=== PATIENT | female | born 1990 | race Caucasian/White ===

== ENCOUNTER 2024-12-01 23:46 | Emergency (ER) | payer OTHER, SELFPAY ==
[2024-12-01 23:58] VITALS: BP 108/75; BP 132/78; PULSE 106; PULSE 93; RESP 16; TEMP 36.6; O2SAT 96; O2SAT 97; BMI 28.7
[2024-12-02 00:12] VITALS: BP 108/75; PULSE 93; PULSE 98; RESP 16; TEMP 36.6; O2SAT 96
[2024-12-02 00:27] VITALS: BP 114/90; PULSE 96; RESP 16; O2SAT 96
--- NOTE | 2024-12-02 00:29 | ED.PSYCH ---
HPI - Psych General Chief Complaint: ETOH/Substance Use Stated Complaint: CRACK COCAINE USE Time Seen by Provider: 12/01/24 23:56 Source: patient and EMS Mode of arrival: EMS Limitations: no limitations History of Present Illness ED Provider: PREMA HPI Narrative: 34 yo female with PMH Of ADHD and substance abuse who is in sober living house referred here after they found her crack pipe and she admits to using. She denies SI/HI. She can go back after med clearance. She states this happened after she was told she wasn't going to get back on her adderall. She has no complaints. She used to cope with the bad news. complaint: substance abuse Onset (ago): hour(s) Duration: constant History of same: Yes Relieving factors: none Exacerbating factors: drug use Context: recent drug abuse Associated psychiatric symptoms: none Associated symptoms: denies other symptoms Treatments prior to arrival: none Related Data Allergies Allergy/AdvReac Type Severity Reaction Status Date / Time No Known Allergies Allergy Verified 12/02/24 00:03 Review of Systems Review of Systems: Constitutional : No Fever, No Chills, Cardiovascular : No Chest Pain, No SOB Respiratory : No Dyspnea Gastrointestinal : No abdominal pain Musculoskeletal : No Joint Swelling Skin : No rash, no skin laceration Neuro : No Weakness, No Numbness Psych : No SI/HI Yes all other systems are reviewed and are negative [facility] Past Medical History Attestation statement: The following information was validated with the patient. Source: old records reviewed Medical History Active substance abuse ADHD Social History Social History Smoked in Last 30 Days: Yes Use of substances other than those prescribed or required for medical reasons: Yes Substance Use Type: Crack/Cocaine Advance Directives: No Advance Directives Information Provided: Yes Do you have a plan to hurt others: No Plan Physical Exam Vital Signs: Vital Signs: Last Vital Signs Temp 97.9 F 12/02/24 05:33 Pulse 81 12/02/24 05:33 Resp 14 12/02/24 05:33 BP 101/71 12/02/24 05:33 Pulse Ox 95 12/02/24 05:33 O2 Del Method Room Air 12/02/24 05:33 BMI result Body Mass Index 28.7 Appearance: Sleepy but easily woken states it is her night meds. Oriented X3. No acute distress. Eyes: Pupils equal, round and reactive to light. ENT: Pharynx normal. Neck: Normal inspection. Neck supple. CVS: Normal heart rate and rhythm. Pulses normal. Respiratory: No respiratory distress. Breath sounds normal. Abdomen: Soft and nontender. Skin: Skin warm and dry. Normal skin color. Normal skin turgor. Extremities: No lower extremity edema. No calf ttp Neuro: Oriented X 3. No motor deficit. No sensory deficit. CN2-12 intact Course Course Course Narrative: stable for DC Medical Decision Making Medical Decision Making [facility] Narrative: 34 yo female with PMH of substance use disorder and ADHD has been in sober adult livging referred by facility after they found her crack pipe. She is allowed to go back, she denies SI. She has no symptoms will obtain drug screen and DC back in AM Differential Diagnosis Differential Diagnoses: The differential diagnosis associated with the presentation includes substance abuse Admission/Observation Consideration of admission/observation: Escalation of care including admission/observation considered can be DC back to sober living in AM stable in AM Lab Data [facility] Lab Attestation statement: I reviewed the patient's lab results. Independent Historian Clinical information obtained from an independent historian. History obtained from or confirmed by: EMS Social Determinants Patient?s care significantly limited by Social Determinants of Health including: Problems related to primary support group Discharge Plan Discharge Clinical Impression: Crack cocaine use Patient Disposition: Home, Self-Care Instructions: Cocaine Use Disorder (ED) Additional Instructions: cocaine use disorder You were seen in our Emergency Department today for treatment of opiate use disorder. You may experience feeling some withdrawal symptoms and this is normal. Please do not feel discouraged, it is a process. The nurse has reviewed with you where to follow up and what information to bring with you, to continue treatment. If you decide you want to stop or cut down on how much you?re using, you can call or walk into our outpatient Addiction Treatment office: [facility] (M-F 9am-5p) [address] [place] [address], [address] [phone] You may have been provided with safer injection?items, please take time to take care of YOU and your health. Use new supplies whenever possible to lessen the chances of infections and other illnesses.? ?If you need more supplies, please go [facility],? [address] [place], [place] you can call or text to coordinate delivery of safer supplies. You were also provided a list of several treatment providers in the area.? If you experience any worsening symptoms you cannot control please return to the ED or call 911. Please follow up at your next appointment. Things to look out for are fevers, chest pain, shortness of breath, severe pain, dizziness, fainting or any other concerns. Print Language: Azeri
--- NOTE | 2024-12-02 00:49 | MHC.EDTECH ---
Patient was changed into crisis attire, security present, pt is calm and cooperative, belongings list completed and locked on shelf 1 in the [facility]
[2024-12-02 04:33] VITALS: BP 99/64; PULSE 83; RESP 12; O2SAT 95
[2024-12-02 05:33] VITALS: BP 101/71; PULSE 81; RESP 14; TEMP 36.6; O2SAT 95
--- OUTSIDE RECORDS SUMMARY | 2024-12-02 06:42 | XMS_ITS | Clinical Summary ---
Author Organization [facility] Address [address] [place] [address] Care Team Providers Care Drilling Inspector Name Role Phone Nelson Lopez MD Primary Care Provider [phone] Allergies No known active allergies Medications baclofen (LIORESAL) 10 mg tablet 07/25/2024 Active cloNIDine (CATAPRES) 0.1 mg tablet 08/08/2024 Active diclofenac (VOLTAREN) 50 mg EC tablet 07/20/2024 Active QUEtiapine (SEROquel) 25 mg tablet 07/20/2024 Active QUEtiapine (SEROquel) 50 mg tablet 08/18/2024 Active hydrOXYzine HCL (ATARAX) 25 mg tablet Take 50 mg by mouth 3 times a day as needed for itching. Active meclizine (ANTIVERT) 25 mg tablet Take 25 mg by mouth 3 times a day as needed for dizziness. Active dimenhyDRINATE 50 mg tablet,chewable Chew and swallow by mouth. Active Encounters Date Type Department Care Team Description 09/18/2024 12:40 PM EDT - 09/18/2024 3:21 PM EDT Emergency [facility] Emergency Department [address] [place] [id number] Ganga Roldan MD Encounter for medication administration (Primary Dx) Discharge Disposition: Home or Self Care () 09/17/2024 3:17 PM EDT - 09/17/2024 6:52 PM EDT Emergency [facility] Emergency Department [address] [place] [address] Ganga Roldan MD Other fatigue (Primary Dx) Discharge Disposition: Home or Self Care (01) from Last 3 Months Social History Tobacco Use Types Packs/Day Years Used Date Smoking Tobacco: Every Day Cigarettes Smokeless Tobacco: Never Tobacco Cessation:Ready to Q uit: Not Asked; Counseling Given: Not Answered Alcohol Use Standard Drinks/Week Comments Not Currently 0 (1 standard drink = 0.6 oz pur e alcohol) Comments Unknown Sex and Gender Information Value Date Recorded Sex Assigned at Female 09/17/2024 2:28 PM EDT Legal Sex Female 2:25 PM EDT Gender Identity Not on file Sexual Orientation Not on file Last Filed Vital Signs Vital Sign Reading Time Taken Comments Blood Pressure 133/86 09/18/2024 2:51 PM EDT Pulse 90 09/18/2024 2:51 PM EDT Temperature 36.8 C (98.2 F) 09/18/2024 12:10 PM EDT Respiratory Rate 14 09/18/2024 2:51 PM EDT Oxygen Saturation 99% 09/18/2024 2:51 PM EDT Inhaled Oxygen Concentration - - Weight - - Height - - Body Mass Index - - Plan of Treatment Health Maintenance Due Date Last Done Comments Cervical Cancer Screening 1988 HIV Screening 1988 HPV and Pap Smear 1988 Pap Smear 1988 Varicella Vaccines (1 of 2 - 13+ 2-dose series) 2001 Hepatitis B Vaccines (1 of 3 - 19+ 3-dose series) 07/03/2007 DTaP,Tdap,and Td Vaccines (1 - Tdap) 2010 Alcohol/Substance Use Screening 02/24/2024 Oral Health Screening 02/24/2024 COVID-19 Vaccine ( - 2023-2 5 season) 2024 Influenza Vaccine (#1) 2024 RSV Vaccine (60+ years old a nd patients) (1 - 1-dose 75+ series) 07/03/2063 Pneumococcal Vaccine: Pediat dian (0-5 Years) and At-Risk Patients (6-50 Years) Aged Out No longer eligible b ased on patient's age to complete this topic Procedures * Due to [place] state law, this organization might not be sharing negative HIV tests. Procedure Name Priority Date/Time Associated Diagnosis Comments T4, FREE STAT 09/17/2024 4:05 PM EDT LACTIC ACID, PLASMA W/ REPEAT STAT 09/17/2024 4:05 PM EDT TSH REFLEX FREE T4 STAT 09/17/2024 4: 05 PM EDT MAGNESIUM STAT 09/17/2024 4:05 PM EDT HCG, QUALITATIVE, SERUM STAT 09/17/2024 4:05 PM EDT COMPREHENSIVE METABOLIC PANEL STAT 09/17/2024 4:05 PM EDT CBC AUTO DIFFERENTIAL STAT 09/17/2024 4:05 PM EDT HEPATITIS C ANTIBODY W/REFLEX TO HCV RNA, QUANTITATIVE PCR STAT 09/17/2024 4:05 PM EDT ECG 12-LEAD STAT 09/17/2024 2:47 PM EDT HEART & VASCULAR - SCANNED 09/17/2024 from Last 3 Months Results * Due to [place] state law, this organization might not be sharing negative HIV tests. * (ABNORMAL) Lactic Acid (w/Repeat if >2) (09/17/2024 4:05 PM EDT) Lactic Acid 2.5(H) 0.5 - 1.9 mmol/L 09/17/2024 4:34 PM EDT [facility] Blood Structure of peripheral vein / Unknown Venipuncture / Unknown 09/17/2024 4:05 PM EDT 09/17/2024 4:06 PM EDT us Ganga Roldan MD LAB BLOOD ORDERABLES Fi nal Result [facility] [address] [place] [address], [place] * (ABNORMAL) TSH Reflex Free T4 (09/17/2024 4:05 PM EDT) Pathologist [facility] [place] TSH 5.560(H) 0.280 - 3.890 uIU/mL 09/17/2024 4:41 PM EDT [facility] Comment: Females: 1st trimester 0.150-4.000 IU/mL 2nd trimester 0.310-4.170 IU/mL 3rd trimester 0.380-4.150 IU/mL Blood Structure of peripheral vein / Unknown Venipuncture / Unknown 09/17/2024 4:05 PM EDT 09/17/2024 4:06 PM EDT us Ganga Roldan MD LAB BLOOD ORDERABLES Fi nal Result [facility] [address] [place] [id number], [place] * (ABNORMAL) CBC Auto Differential (09/17/2024 4:05 PM EDT) [facility] WBC 7.4 3.8 - 10.8 10*3/uL 09/17/2024 4:10 PM EDT [facility] RBC 4.48 3.80 - 5.10 10*6/uL 09/17/2024 4:10 PM EDT [facility] Hemoglobin 11.2(L) 11.7 - 15.5 g/dL 09/17/2024 4:10 PM EDT [facility] Hematocrit 35.1 35.0 - 45.0 % 09/17/2024 4:10 PM EDT [facility] MCV 78.3(L) 80.0 - 100.0 fL 09/17/2024 4:10 PM EDT [facility] MCH 25.0(L) 27.0 - 33.0 pg 09/17/2024 4:10 PM EDT [facility] MCHC 31.9(L) 32.0 - 36.0 g/dL 09/17/2024 4:10 PM EDT [facility] RDW 14.4 11.0 - 15.0 % 09/17/2024 4:10 PM EDT [facility] Platelets 252 140 - 400 10*3/uL 09/17/2024 4:10 PM EDT [facility] MPV 9.1 7.5 - 12.5 fL 09/17/2024 4:10 PM EDT [facility] Neutrophil % 64.3 % 09/17/2024 4:10 PM EDT [facility] Immature Grans % 0.4 0.0 - 0.9 % 09/17/2024 4:10 PM EDT [facility] Lymphocyte % 24.4 % 09/17/2024 4:10 PM EDT [facility] Monocyte % 7.3 % 09/17/2024 4:10 PM EDT [facility] Eosinophil % 3.1 % 09/17/2024 4:10 PM EDT [facility] Basophil % 0.5 % 09/17/2024 4:10 PM EDT [facility] Neutrophil # 4.76 1.50 - 7.80 10*3/uL 09/17/2024 4:10 PM EDT [facility] Immature Grans # 0.03 <=0.03 10*3/uL 09/17/2024 4:10 PM EDT [facility] Lymphocyte # 1.80 0.85 - 3.90 10*3/uL 09/17/2024 4:10 PM EDT [facility] Monocyte # 0.50 0.20 - 0.95 10*3/uL 09/17/2024 4:10 PM EDT [facility] Eosinophil # 0.20 0.02 - 0.50 10*3/uL 09/17/2024 4:10 PM EDT [facility] Basophil # <0.03 0.00 - 0.20 10*3/uL 09/17/2024 4:10 PM EDT [facility] nRBC % 0.0 /100 WBCs 09/17/2024 4:10 PM EDT [facility] nRBC # <0.01 <0.01 10*3/uL 09/17/2024 4:10 PM EDT [facility] Blood Structure of peripheral vein / Unknown Venipuncture / Unknown 09/17/2024 4:05 PM EDT 09/17/2024 4:06 PM EDT Ganga Roldan MD LAB BLOOD ORDERABLES Fi nal Result Performing Organization Address City/[facility]/ZIP Co de Phone Number [facility] [address] [place] [address], * Hepatitis C Antibody w/Reflex to HCV RNA, Quantitative PCR (09/17/2024 4:05 PM EDT) Hepatitis C Antibody NON-REACT FAN NON-REACT FAN 09/18/2024 10:37 AM EDT [employer] [facility] Comment: HCV antibody was non-reactive. There is no laboratory evidence of HCV infection. In most cases, no further action is required. However, if recent HCV exposure is suspected, a test for HCV RNA (test code 82389) is suggested. For additional information please refer to http://education.SpineVision/faq/WRO17l9 (This link is being provided for informational/ educational purposes only.) Blood Structure of peripheral vein / Unknown Venipuncture / Unknown 09/17/2024 4:05 PM EDT 09/17/2024 4:06 PM EDT [facility] - 09/18/2024 10:37 AM EDT [facility] Received Date:[id number] us Instant Order Physician LAB BLOOD ORDERABLES Fin al Result CLE[facility] [address] [facility] [address], [place] [address], [place] [phone] [employer] [facility] [address], [place] [address], [place] [phone] * hCG, QUALitative (09/17/2024 4:05 PM EDT) HCG Qualitative, Serum Negative Negative 09/17/2024 4:41 PM EDT [facility] Comment: hCG greater than or equal to 5.0 mlU/mL is considered positive. hCG may be negative in early . Suggest repeat testing in 2-4 days if clinically indicated. Human anti-mouse antibodies (HAMA) and other heterophilic antibodies if present can interfere with the assay. The result of this test should be interpreted with the patient's clinical presentation. Blood Structure of peripheral vein / Unknown Venipuncture / Unknown 09/17/2024 4:05 PM EDT 09/17/2024 4:06 PM EDT Ganga Roldan MD LAB BLOOD ORDERABLES [facility] Result [facility] [address] [place] [address], [place] * T4, Free (09/17/2024 4:05 PM EDT) Free T4 0.99 0.80 - 1.80 ng/dL 09/17/2024 5:13 PM EDT [facility] Comment: Females: (ng/dL) First Trimester 0.95-1.58 ng/dL Second Trimester 0.76-1.24 ng/dL Third Trimester 0.70-1.25 ng/dL Dietary supplements containing biotin may interfere in assays and may skew analyte results to be falsely high. For patients receiving the recommended daily doses of biotin, draw samples at least 8 hours following the last biotin supplementation. For patients on medhat-doses of biotin supplements, draw samples at least 72 hours following the last biotin supplementation. Effective 2024, Free T4 reference range (>=18 years old) is 0.8 - 1.8 ng/dL, replacing the previous range of 0.93 - 1.70 ng/dL. Blood Structure of peripheral vein / Unknown Venipuncture / Unknown 09/17/2024 4:05 PM EDT 09/17/2024 4:06 PM EDT Ganga Roldan MD LAB BLOOD ORDERABLES Fi nal Result Performing Organization Address City/[facility]/ZIP Co de Phone Number [facility] [address] [place], [place] [id number], [place] * Magnesium (09/17/2024 4:05 PM EDT) MG 1.8 1.6 - 2.4 mg/dL 09/17/2024 4:41 PM EDT [facility] Blood Structure of peripheral vein / Unknown Venipuncture / Unknown 09/17/2024 4:05 PM EDT 09/17/2024 4:06 PM EDT Ganga Roldan MD LAB BLOOD ORDERABLES Fi nal Result Performing Organization Address [facility] Co de Phone Number [facility] [address] [place] [address], [place] * (ABNORMAL) CMP - Comprehensive Metabolic Panel (09/17/2024 4:05 PM EDT) NA 138 135 - 145 mmol/L 09/17/2024 4:41 PM EDT [facility] K 4.2 3.5 - 5.3 mmol/L 09/17/2024 4:41 PM EDT [facility] Cl 102 98 - 107 mmol/L 09/17/2024 4:41 PM EDT [facility] CO2 24 22 - 32 mmol/L 09/17/2024 4:41 PM EDT [facility] Anion Gap 12 5 - 15 09/17/2024 4:41 PM [facility] Glucose 137(H) 65 - 99 mg/dL 09/17/2024 4:41 PM [facility] Creatinine 0.90 0.50 - 1.20 mg/dL 09/17/2024 4:41 PM [facility] Calcium 9.0 8.6 - 10.5 mg/dL 09/17/2024 4:41 PM [facility] Total Protein 7.3 6.0 - 8.0 g/dL 09/17/2024 4:41 PM [facility] Albumin 3.9 3.5 - 5.2 g/dL 09/17/2024 4:41 PM [facility] Bilirubin, Total 0.3 0.2 - 1.2 mg/dL 09/17/2024 4:41 PM [facility] Alkaline Phosphatase 132(H) 35 - 129 U/L 09/17/2024 4:41 PM [facility] AST 28 10 - 40 U/L 09/17/2024 4:41 PM [facility] ALT 21 10 - 40 U/L 09/17/2024 4:41 PM [facility] BUN 9 7 - 23 mg/dL 09/17/2024 4:41 PM [facility] eGFR 85 >=60 mL/min/1. 73m2 09/17/2024 4:41 PM [facility] Comment:The estimated glomer ular filtration rate (eGFR) is calculated using a new formula developed by the NKF-ASN task force to eliminate race-based correction factors. The new formula uses serum/plasma creatinine, age, and gender to determine eGFR. A value below 60mls/min might indicate kidney disease and will be flagged. For additional information, see Sarah et al, Am J Kidney Dis. 2021;79(2):268- 288, A Unifying Approach for GFR estimation: Recommendations of the NKF-ASN Task Force on Reassessing the Inclusion of Race in Diagnosing Kidney Disease . Globulin, Total 3.4 2.1 - 4.2 g/dL 09/17/2024 4:41 PM EDT [facility] A/G Ratio 1.1(L) 1.5 - 3.0 09/17/2024 4:41 PM EDT [facility] Blood Structure of peripheral vein / Unknown Venipuncture / Unknown 09/17/2024 4:05 PM EDT 09/17/2024 4:06 PM EDT us Ganga Roldan MD LAB BLOOD ORDERABLES Fi nal Result [facility] [address] [place] [address], * ECG 12 lead (09/17/2024 2:47 PM EDT) Ventricular Rate EKG 125 BPM MUSE EKG Atrial Rate 125 BPM MUSE EKG [place] Interval 164 ms MUSE EKG QRS Interval 88 ms MUSE EKG QT Interval 298 ms MUSE EKG QTC Interval 430 ms MUSE EKG P Tabor 69 degrees MUSE EKG R [place] 28 degrees MUSE EKG T Wave Tabor 9 degrees MUSE EKG 09/17/2024 2:47 PM EDT 09/18/2024 1:00 PM EDT Impressions MUSE EKG - 09/18/2024 1:00 PM EDT SINUS TACHYCARDIA NONSPECIFIC ST ABNORMALITY ABNORMAL ECG NO PREVIOUS ECGS AVAILABLE Confirmed by Jersey Espinoza ([id number]) on 09/18/2024 1:00:55 PM Narrative Procedure Note Jersey Espinoza MD - 09/18/2024 IMPRESSION: SINUS TACHYCARDIA NONSPECIFIC ST ABNORMALITY ABNORMAL ECG NO PREVIOUS ECGS AVAILABLE Confirmed by Jersey Espinoza ([id number]) on 09/18/2024 1:00:55 PM us aGnga Roldan MD ECG ORDERABLES Final R esult MUSE EKG * HEART & VASCULAR - SCANNED (09/17/2024) Anatomical Region Laterality Modality Other us Onbase Scan Sim SCANNED PROCEDURES Final Resu lt from Last [address] [address] MEDICAID Care Teams Drilling Inspector Relationship Specialty Start Date End Date Nelson Lopez MD [address] [place] [id number] PCP - General Internal Medicine 09/17/24
[2024-12-02 07:36] VITALS: BP 106/66; PULSE 66; RESP 16
--- NOTE | 2024-12-02 07:38 | PC.NURSE ---
Report taken from previous rn at 0700. plan is to d/c when awake. pt is alert to tactile stimuli but otherwise is drowsy. her resps are spontaneous and nonlabored. her radial pulses are strong and regular with wpd skin. She offers no complaints at this time.
--- NOTE | 2024-12-02 10:06 | PC.NURSE ---
[facility] contacted this rn and informed me that Ivone would not be allowed back into their facility due to her admitted drug use. Her options per Kassidy Abdi, the mortgage sales manager at [facility], are to seek detox bed and reapply for admittance to [facility] or be d/c home. I informed Ivone and she is making calls for detox, also is aware and we are ordering a care team consult.
[2024-12-02 11:06] VITALS: BP 106/66; PULSE 66; RESP 16; TEMP 36.6; O2SAT 95
--- NOTE | 2024-12-02 11:07 | PC.NURSE ---
we offered Ivone a care team evaluation for detox, she initially accepted after making several phone calls of her own. Ivone has no decided she wants to leave and collect her belonginigs from [facility] and return to ed for care team, I informed her this would contstitute a new er visist and the er team would need to treat her as a new encounter. Flor opted to proceed with her plan. she ambulated with brisk steady gait from tx area and was fully caox4.
== END 2024-12-02 11:12 | disposition home or self-care (01) ==
PROVIDERS: Emergency Provider Emergency Medicine
DX: F14.10 Cocaine abuse, uncomplicated (principal)
CPT/HCPCS: 99284